=== PATIENT | male | born 1945 | race Caucasian/White ===

== ENCOUNTER → 2017-04-27 | Outpatient (REF) ==
[~2017-04-27] MED LIST: ADVIL200 MG PO; ALBUTEROL0.83 MG/ML IH; AMBIEN 10MG10 MG PO; ASPIRIN 32325 MG/TAB PO; ATROVENT I0.2 MG/1 M IH; CHANTIX 1MG1 MG PO; CHANTIX START M1 TAB PO; FORADIL AERO0.012 MG IH; MUCINEX1200 MG PO; NORCO 325 MG-51 TAB PO; NORCO 325 MG-7.1 TAB PO; OMNICEF 300MG300 MG PO; PLAVIX 75MG TAB75 MG PO; PREDNISONE10 MG PO; PROVENTIL0.09 MG/A1 IH; RT ADVAIR 228 DISKUS IH; RT SPIRIVA18 MCG IH; THEO-DUR 2200 MG/TAB PO; TYLENOL 325MG325 MG PO; VENTOLIN0.09 MG IH; ZOCOR 10MG10 MG PO; ZOCOR 40MG40 MG PO
[2017-04-27 19:02] LABS: PSA-TOTAL 1.41 ng/mL (0-4); THYROID STIMULATING HORMONE 1.5 uIU/mL (0.465-4.680)
== END ==
LOC: ZLAB.WCH 18:15
PROVIDERS: Internal Medicine
DX: Z01.89 Encounter for other specified special examinations (principal)
CPT/HCPCS: G0103

== ENCOUNTER 2017-10-14 09:59 | Emergency (ER) | payer MEDICARE ==
[~2017-10-14] VITALS: Ht 172.7 cm; Wt 88.6 kg
[2017-10-14 10:13] VITALS: BP 145/84; TEMP 98.8
[2017-10-14 11:10] LABS: INFLUENZA A NEGATIVE; INFLUENZA B NEGATIVE
[2017-10-14] MEDS ORDERED: DOXYCYCLINE 10100 MG PO (11:35)
[2017-10-14] MEDS ORDERED: PREDNISONE20 MG PO (11:35)
[2017-10-14 13:05] VITALS: PULSE 103
== END 2017-10-14 13:05 | disposition home or self-care (01) ==
LOC: COL.ER 09:59
PROVIDERS: Emergency Medicine
DX: J44.1 Chronic obstructive pulmonary disease with (acute) exacerbation (principal); J20.9 Acute bronchitis, unspecified; Z90.89 Acquired absence of other organs; Z98.890 Other specified postprocedural states; Z79.02 Long term (current) use of antithrombotics/antiplatelets
CPT/HCPCS: J7512

== ENCOUNTER → 2018-05-22 | Outpatient (REF) ==
[~2018-05-22] MED LIST changes: +DOXYCYCLINE 10100 MG PO; +PREDNISONE20 MG PO
== END ==
LOC: ZLAB.WCH 14:24
DX: Z01.89 Encounter for other specified special examinations (principal)
CPT/HCPCS: G0103

== ENCOUNTER 2019-03-09 12:14 | Inpatient (IN) | payer MEDICARE ==
[~2019-03-09] VITALS: Ht 170.2 cm; Wt 82.8 kg
[2019-03-09 12:31] LABS: BASO % 0.2 % (0.0-2.0); EOS % 0.4 % (0-4.0); GRAN # 7.5 (1.4-6.5); GRAN % 82.4 % (42.2-75.2); HEMATOCRIT 42.4 % (42.0-52.0); HEMOGLOBIN 14.1 g/dl (13.5-18.0); LYMPH # 0.6 (1.2-3.4); LYMPH % 6.1 % (20.0-51.0); MEAN CELL VOLUME 94 fl (80.0-100.0); MEAN CORPUSCULAR HEMOGLOBIN 31 pg (27.0-31.0); MEAN CORPUSCULAR HGB CONC 33 g/dl (33.0-37.0); MEAN PLATELET VOLUME 10.3 fl (7.4-10.4); MONO # 0.9 (0.1-0.6); MONO % 10.3 % (1.7-9.3); PLATELET COUNT 213 K/mm3 (130-400); RED BLOOD COUNT 4.52 M/mm3 (4.20-5.60); REDCELL DISTRIBUTION WIDTH-CV 12.4 % (11.5-14.5)
[2019-03-09] MEDS ORDERED: SPIRIVA RE2.5 MCG/Ac IH (12:39)
[2019-03-09] MEDS ORDERED: 00186-0370-20 IH (12:40)
[2019-03-09] MEDS ORDERED: ALBUTEROL0.83 MG/ML IH (12:40)
[2019-03-09 12:43] LABS: ALBUMIN 4.4 gm/dL (3.5-5.0); BILIRUBIN,TOTAL 0.9 mg/dL (0.0-1.0); CALCIUM 9.3 mg/dL (8.4-10.2); CREATININE, serum 0.91 (0.66-1.25); POTASSIUM 4.5 mmol/L (3.4-5.0)
[2019-03-09 12:58] LABS: ARTERIAL BLD GAS O2 SATURATION 96.1 % (92-100); ARTERIAL BLD GAS TCO2 CT 24.4; ARTERIAL BLOOD GAS BASE EXCESS -0.4 (-2-2); ARTERIAL BLOOD GAS HCO3 23.3 meq/L (22-26); ARTERIAL BLOOD GAS PCO2 35.5 mmHg (35-45); ARTERIAL BLOOD GAS PO2 87.3 mmHg (80-100); ARTERIAL BLOOD GAS pH 7.44 (7.35-7.45)
--- NOTE | 2019-03-09 15:30 | NUR ---
Pt arrived to floor at this time via w/c with ER staff. Will orient to room and showed how to order food and provided menu. Denies needs, will continue to monitor. Told Dr. Magallanes of arrival. Will continue to monitor.
[2019-03-09 16:42] VITALS: BP 157/58; PULSE 100; TEMP 100.7
--- NOTE | 2019-03-09 17:43 | NUR ---
Pt resting in bed after eating a late lunch/early supper. He states after eating he noticed he was increasingly short of breath and felt feverish. PRN tylenol provided for temp of over 100. Pt resting in bed on side with 02 at 2L NC. Denies pain. IVF to RW. Will give bedside shift report to nightshift nurse who will resume care.
--- NOTE | 2019-03-09 20:35 | NUR ---
PT WAS SOB AND SITTING AT SIDE OF BED. RT GAVE BREATHING TX AND STILL HAD PROBLEMS BREATHING. YING SHAFFER WAS INFORMED AND CAME TO ROOM PT ADVISED THAT HE IS AT HOME LIKE THIS AND REFUSED YING'S SUGGESTIONS TO PLACE ON BIPAP AND GET ABG. PT SAT BACK IN BED AND WAS BREATHING SOMEWHAT BETTER. RT CALLED AGAIN AND SHE ADVISED THAT NEXT DUO-NEB CAN BE GIVEN IN 2 HOURS AND SHE WILL BRING IT THEN. PT ADVISED THAT THAT WOULD BE FINE. PT ALSO ADVISED THAT HE FEELS A LOT BETTER NOW. CALL LIGHT WITHIN REACH.
[2019-03-09 20:59] LABS: COLLECTION METHOD CLEAN CATCH
[2019-03-09 21:15] LABS: MUCOUS Present /lpf; PH 5 (5-8); SQUAMOUS EPITHELIAL 0-2 /hpf; URINE APPEARANCE Clear; URINE BACTERIA None Seen /hpf; URINE BILIRUBIN Negative (NEGATIVE); URINE BLOOD Negative (NEGATIVE); URINE COLOR Yellow; URINE GLUCOSE Negative (NEGATIVE); URINE KETONE Trace (NEGATIVE); URINE LEUKOCYTE ESTERASE Negative (NEGATIVE); URINE NITRATE Negative (NEGATIVE); URINE PROTEIN(semi-quant) Negative (NEGATIVE); URINE RBC 0-2 /hpf; URINE UROBILINOGEN >=4.0 mg/dL (NEGATIVE)
[2019-03-09 21:20] VITALS: BP 153/75; PULSE 87; TEMP 99
[2019-03-09 22:58] VITALS: BP 158/74; PULSE 82; TEMP 99.1
[2019-03-10 03:47] VITALS: BP 123/43; PULSE 77; TEMP 99.2
[2019-03-10 06:36] LABS: BASO % 0.3 % (0.0-2.0); EOS # 0.2 (0.0-0.7); EOS % 2.2 % (0-4.0); GRAN # 4.4 (1.4-6.5); GRAN % 65.3 % (42.2-75.2); HEMATOCRIT 39.9 % (42.0-52.0); HEMOGLOBIN 13.2 g/dl (13.5-18.0); LYMPH # 1.2 (1.2-3.4); MEAN CELL VOLUME 95 fl (80.0-100.0); MEAN CORPUSCULAR HEMOGLOBIN 31 pg (27.0-31.0); MEAN CORPUSCULAR HGB CONC 33 g/dl (33.0-37.0); MONO # 0.9 (0.1-0.6); MONO % 13.9 % (1.7-9.3); PLATELET COUNT 209 K/mm3 (130-400); RED BLOOD COUNT 4.21 M/mm3 (4.20-5.60); REDCELL DISTRIBUTION WIDTH-CV 12.3 % (11.5-14.5)
[2019-03-10 06:49] LABS: ANION GAP 11 mmol/L (7-16); BLOOD UREA NITROGEN 14 mg/dL (9-20); CALCIUM 8.8 mg/dL (8.4-10.2); CARBON DIOXIDE 26 mmol/L (22-30); CHLORIDE 102 mmol/L (98-107); CHOLESTEROL 109 mg/dL (120-200); GLUCOSE 110 mg/dL (74-106); HDL CHOLESTEROL 36 mg/dL; LDL CHOLESTEROL 49 mg/dL; POTASSIUM 4.2 mmol/L (3.4-5.0); SODIUM 139 mmol/L (137-145); TRIGLYCERIDE 120 mg/dL
[2019-03-10 06:58] LABS: TROPONIN-I < 0.012 ng/mL (0.000-0.035)
--- NOTE | 2019-03-10 07:02 | NUR ---
PT WAS UP MOST OF NIGHT. PT DID STATE THAT HE DID SLEEP FOR A COUPLE OF HOURS. PT DENIES PAIN OR DISCOMFORT. PT IS NOW RESTING IN BED WITH BOTH EYES CLOSED AND NO S/S OF DISTRESS OR PAIN. CALL LIGHT WITHIN REACH.
[2019-03-10 08:18] VITALS: BP 165/61; PULSE 85; TEMP 98.1
--- NOTE | 2019-03-10 08:45 | NUR ---
Patient assessment complete. Patient c/o back pain, chronic, typically takes tylenol with morning medications. Patient c/o SOB on exertion and durng coughing fit last night. Requesting mucinex to help. patient is on 2L NC, sitting on edge of bed. Lung sounds diminished throughout. Heart RRR. Bowel sounds present X4. Pulses strong bilaterally. Denies chest pain, dizziness or N/V. Patient denies other needs at this time. Call light within reach. Patient uses bedside urinal but is ambulatory.
[2019-03-10 11:27] VITALS: BP 134/48; PULSE 64; TEMP 98.3
--- NOTE | 2019-03-10 12:40 | NUR ---
Patient reports that he plans to go home. SW met with patient about DC plan. Patient indicated that he has a DTR two minutes away and does not require any Home health services. Patient rpeorts that he uses a walker in community and not at home. PCP is Dr. Kumar. Patient reports that he uses 02 all day. Patient reports that he uses [facility] for medications on [address]. DTR is Colleen Morales .(DPOA) Patient reports the use of nebulizer. Family will transport home. Patient denies the use of any other dme. No additonal needs identified at this time.
--- NOTE | 2019-03-10 19:45 | NUR ---
Patient has had uneventful day. Denies pain. VSS. Report given to JANIE Grimaldo. No other needs. Call light within reach.
[2019-03-10 20:00] VITALS: BP 139/62; PULSE 75; TEMP 98.3
[2019-03-11] VITALS: BP 129/65; PULSE 77; TEMP 98.9
--- NOTE | 2019-03-11 02:02 | NUR ---
1200: PATIENT LAYING IN BED WITH EYES CLOSED. PRESENTS WITH RELAXED BODY POSTURE AND EVEN NON LABORED RESPIRATIONS. CALL LIGHT WITHIN REACH.
[2019-03-11 04:00] VITALS: BP 124/56; PULSE 70; TEMP 97.9
[2019-03-11 05:47] LABS: BASO % 0.2 % (0.0-2.0); EOS # 0.2 (0.0-0.7); EOS % 3.9 % (0-4.0); GRAN # 3.4 (1.4-6.5); GRAN % 59.1 % (42.2-75.2); HEMATOCRIT 37.9 % (42.0-52.0); HEMOGLOBIN 12.6 g/dl (13.5-18.0); LYMPH # 1.2 (1.2-3.4); LYMPH % 20.4 % (20.0-51.0); MEAN CELL VOLUME 94 fl (80.0-100.0); MEAN CORPUSCULAR HEMOGLOBIN 31 pg (27.0-31.0); MEAN CORPUSCULAR HGB CONC 33 g/dl (33.0-37.0); MEAN PLATELET VOLUME 10.2 fl (7.4-10.4); MONO # 0.9 (0.1-0.6); MONO % 15.5 % (1.7-9.3); PLATELET COUNT 207 K/mm3 (130-400); RED BLOOD COUNT 4.04 M/mm3 (4.20-5.60); REDCELL DISTRIBUTION WIDTH-CV 12.1 % (11.5-14.5)
[2019-03-11 06:00] LABS: CALCIUM 8.6 mg/dL (8.4-10.2); CREATININE, serum 0.78 (0.66-1.25); POTASSIUM 3.9 mmol/L (3.4-5.0)
--- NOTE | 2019-03-11 07:00 | NUR ---
Report received from JANIE Grimaldo. PT in bed resting, feeling well, will continue to monitor.
[2019-03-11 07:58] VITALS: BP 139/64; PULSE 81; TEMP 98.1
--- NOTE | 2019-03-11 08:40 | NUR ---
Pt resting in bed, sitting at side of bed hunched over, typical COPD positioning, visiting with friend, talking well, states he feels much better but is still SOB which is chronic issue. INT to RH. Denies needs, hopes todischarge today. Will continue to monitor.
[2019-03-11 11:11] VITALS: BP 146/69; PULSE 78; TEMP 97.8
[2019-03-11] MEDS ORDERED: LEVAQUIN 750MG750 M1 PO ×2 (14:01→14:59)
--- NOTE | 2019-03-11 16:14 | NUR ---
Discharge teaching completed at this time. Pt leaving via w/c with medical staff, daughter to drive home. Discharge packet reviewed, gave today's dose of Levaquin as pt will not be going to fill the script today, OK per ЮЛИЯ Finney. INT d/c'd, tip intact. Disucssed f/u appointments. Criteria met.
== END 2019-03-11 16:10 | disposition home or self-care (01) | DRG 871 ==
LOC: COL.ER 12:14 → MEDICAL 13:17
PROVIDERS: Family Medicine; ADMIT Hospitalist
DX: A41.9 Sepsis, unspecified organism (principal); J18.9 Pneumonia, unspecified organism; J44.0 Chronic obstructive pulmonary disease with (acute) lower respiratory infection; J96.11 Chronic respiratory failure with hypoxia; Z99.81 Dependence on supplemental oxygen; E78.5 Hyperlipidemia, unspecified; I10 Essential (primary) hypertension; Z86.73 Personal history of transient ischemic attack (TIA), and cerebral infarction without residual deficits; M19.90 Unspecified osteoarthritis, unspecified site; F17.210 Nicotine dependence, cigarettes, uncomplicated; R07.9 Chest pain, unspecified
CPT/HCPCS: 99231-AI; 99232-AI; 99239; A4216; J0456; J0696; J1650; J7030; J7050

== ENCOUNTER → 2019-06-24 | Outpatient (CLI) | payer MEDICARE ==
[~2019-06-24] MED LIST changes: +00186-0370-20 IH; +LEVAQUIN 750MG750 M1 PO; +SPIRIVA RE2.5 MCG/Ac IH
== END ==
LOC: COL.VAS 06-14 13:15
DX: Z00.00 Encounter for general adult medical examination without abnormal findings (principal); G46.0 Middle cerebral artery syndrome; I71.4 Abdominal aortic aneurysm, without rupture